=== PATIENT | female | born 1965 | race Two or more races ===

== ENCOUNTER 2018-06-01 08:44 | Day surgery (SDC) | payer OTHER ==
[~2018-06-01 08:44] MED LIST: ASA81 MG PO
== END 2018-06-01 20:05 | disposition home or self-care (01) ==
LOC: CIR.AMB 08:44
DX: M77.02 Medial epicondylitis, left elbow (principal); G56.02 Carpal tunnel syndrome, left upper limb; M65.312 Trigger thumb, left thumb

== ENCOUNTER 2020-03-27 08:01 | Day surgery (SDC) | payer OTHER | END 2020-03-27 13:45 | disposition home or self-care (01) | LOC: CIR.AMB 08:01 | PROVIDERS: ATTEND Orthopaedic Surgery Hand Surgery | DX: M65.342 Trigger finger, left ring finger (principal); Z20.822 Contact with and (suspected) exposure to COVID-19 ==

== ENCOUNTER 2022-04-08 06:28 | Day surgery (SDC) | payer OTHER ==
[~2022-04-08] VITALS: Ht 149.9 cm; Wt 57.2 kg
== END 2022-04-08 14:05 | disposition home or self-care (01) ==
LOC: CIR.AMB 06:28
PROVIDERS: ATTEND Orthopaedic Surgery Hand Surgery
DX: G56.01 Carpal tunnel syndrome, right upper limb (principal); M65.311 Trigger thumb, right thumb; Z20.822 Contact with and (suspected) exposure to COVID-19